=== PATIENT | male | born 1955 | race Caucasian/White ===

== ENCOUNTER 2017-01-02 16:47 | Inpatient (IN) | payer MEDICAID ==
[~2017-01-02] VITALS: Ht 162.6 cm; Wt 63.9 kg
--- NOTE | ~2017-01-02 | CON ---
PATIENT'S NAME: YLOY BOYER [facility] AGE: 61 Y [address] ROOM: [address] [place] [address] LOCATION: [facility] ADMIT DATE: 01/02/2017 Consultation DISCHARGE DATE: 01/09/2017 FAMILY PHYSICIAN: Gray Whaley MD ATTENDING PHYSICIAN: Gray Whaley DATE OF CONSULTATION: 01/05/2017 REFERRING PHYSICIAN: Sekou Padgett MD INDICATION: Persistent hypoxia with COPD exacerbation. HISTORY OF PRESENT ILLNESS: This is a 61-year-old male with a history of hypertension, PAF, heavy longtime smoker, admitted for COPD exacerbation, and respiratory failure. He reports baseline shortness of breath with stairs and baseline cough mainly in the mornings with white sputum. Three weeks ago without any precipitating factors, he developed worsening shortness of breath, lower extremity edema, and increased cough with white and brown sputum. He progressively worsened with the last week developing wheezing. He denies any hemoptysis, chest pain, lightheadedness, PND, orthopnea. He denies any history of COPD, asthma, or other lung disease. He has used tobacco products since age of 14. He started at one pack per day and then increased to 2 to 3 packs per day. He has never used inhalers. He has no history of PFTs. He was started on Levaquin, DuoNeb, and prednisone 80 mg IV every 8 hours but has not had much improvement in his oxygen needs. He came in on 4 L nasal cannula, and he is now on high- flow with FiO2 of 48%. Sats are 90%. Overall clinically, he feels less short of breath and his cough is much less. He reports only having to cough 2 times since admission. He denies any wheezing or hemoptysis. He has no fever, chills, nausea, or vomiting. PAST MEDICAL HISTORY: Includes PAF, hypothyroidism, diabetes. ALLERGIES: SEE MAR. MEDICATIONS: See MAR. FAMILY HISTORY: The patient denies any history of lung disease. SOCIAL HISTORY: He started smoking one pack per day at the age of 14 and increased to 2 to 3 PATIENT'S NAME: YOLY BOYER [facility] AGE: 61 Y [address] ROOM: [address] [place] [id number] LOCATION: GPCU ADMIT DATE: 01/02/2017 Consultation DISCHARGE DATE: 01/09/2017 FAMILY PHYSICIAN: Gray Whaley MD ATTENDING PHYSICIAN: Gray Whaley packs per day since then. He also drinks weekly. REVIEW OF SYSTEMS: All review of systems were reviewed and are negative except for what is noted in the HPI. PHYSICAL EXAMINATION: VITAL SIGNS: Blood pressure 133/66, pulse 87, respirations 17, temp 98.1. He is on high-flow with FiO2 of 48% with sats 90%. GENERAL: This is a 61-year-old male, who is alert and oriented x3 and appears in no acute distress at the time of exam. HEENT: Head: Normocephalic and atraumatic. Eyes, clear. NECK: Supple. No adenopathy. No carotid bruits. No JVD. LUNGS: With rhonchi and crackles at the bases. HEART: Regular rate and rhythm without murmur, gallop, or rub. ABDOMEN: Soft, nontender, and nondistended. Bowel sounds x4. EXTREMITIES: No cyanosis, clubbing, or edema. LABORATORY DATA: Includes sodium 137, potassium 4, BUN 20, creatinine 0.8. WBC 15.8, hemoglobin 15.8, hematocrit 47.9, platelets 219. ASSESSMENT AND PLAN: 1. Acute hypoxic respiratory failure, question secondary to pneumonia along with chronic obstructive pulmonary disease exacerbation with possible cardiac component, question patent foramen ovale versus rhythm issues with congestive heart failure component. Echo with bubble study is pending. Possible YESSICA with DCCV with antiarrhythmic today. No recent ABG and still on high-flow currently. 2. Chronic obstructive pulmonary disease exacerbation, on IV Levaquin, Zosyn, DuoNeb every 4, and Solu-Medrol. 3. Possible pneumonia, right lower lobe. Continue with IV antibiotics. 4. Bilateral pleural effusions, small on CT. Check bedside ultrasound. Secondary to possible pneumonia, right lower lobe. 5. Atrial fibrillation with RVR, per Cardiology. 6. Metabolic alkalosis probably secondary to diuretic. 7. Ongoing tobaccoism. We will need outpatient PFTs and repeat CT down the line. 8. We will check PFTs. We will check ABG due to level of hypoxia and shortness of breath. We will also obtain labs done at [facility] as well as a sputum culture. Otherwise, continue with Levaquin and Zosyn for now as well as the bronchodilators. We would recommend tapering the steroid dose to 40 mg every 8 hours. Overall, he does not appear to be volume overloaded. Therefore, we would recommend holding off on diuresis for now. PATIENT'S NAME: YOLY BOYER [facility] AGE: 61 Y [address] ROOM: [place] [address] LOCATION: GPCU ADMIT DATE: 01/02/2017 Consultation DISCHARGE DATE: 01/09/2017 FAMILY PHYSICIAN: Gray Whaley MD ATTENDING PHYSICIAN: Gray Whaley. Further recommendations will be made pending the course of his stay. Thank you for the consult and opportunity to participate in the patient's care. SMITHA COSTA APRN FOR MD JAMSHID STRANGE/mc /[id number] d: 01/29/172116 t: 02/02/17 1035, CONSULTATION REPORT
--- NOTE | ~2017-01-02 | DS ---
PATIENT'S NAME: YOLY BOYER [facility] AGE: 61 Y [address] ROOM: [id number] [place], [place] [address] LOCATION: GPCU ADMIT DATE: 01/02/2017 Discharge Summary DISCHARGE DATE: 01/09/2017 FAMILY PHYSICIAN: Gray Whaley MD ATTENDING PHYSICIAN: Gray Whaley FINAL DIAGNOSES: 1. Acute on chronic hypoxic and hypercapnic respiratory failure. 2. Acute exacerbation of chronic obstructive pulmonary disease. 3. Bilateral pneumonia. 4. Atrial fibrillation with a rapid ventricular rate, which is new onset. 5. Hypertension. 6. Prediabetes. 7. Nicotine dependence. 8. Hyperthyroidism. 9. Hyperlipidemia. REASON FOR ADMIT: A 61-year-old white male, who is a smoker and poorly compliant with his self-care came into the clinic for a medication check. He was having complaints of wheezing and cough that began 3 weeks ago and has progressively gotten worse. He has had increased swelling in his lower extremities as well. He was found to be significantly hypoxic with a sat of 79% on room air. He was made a direct admit at that time. Please see dictated H and P for full details. HOSPITAL COURSE: The patient was admitted. Chest x-ray show bilateral pneumonia with small effusions. He primarily had a pulmonary component though with his COPD and acute hypoxic respiratory failure. He was initially on 6 L per nasal cannula and took a long time to even get off that. He was treated with IV Levaquin for a community-acquired pneumonia. He ended up having not much for improvement over the next 4-5 days even with IV steroids and breathing treatments. Pulmonary was consulted and they did do some BiPAP and that really seemed to kind of opened him up a little bit, and he eventually started having decreased O2 demands. He was then on 2 L at the time of discharge. The patient also had some atrial fibrillation with RVR. It sounds like that is new in onset for him. They did an echo which showed an ejection fraction of 55-60%. He had some [id number] dilatation of the right atrium and mild dilatation of the left atrium. The interatrial septum appeared to be aneurysmal. There was a bubble study done with the valves and across the left atrium to suggest a PFO or an ASD. He was initially placed on IV Cardizem. He ended up converting, but then had several episodes where he was then back in the AFib with RVR. He was placed on Xarelto by Cardiology as well. He was very well rate controlled and in sinus rhythm at the time of discharge. PATIENT'S NAME: YOLY BOYER [facility] AGE: 61 Y [address] ROOM: [place] [address] LOCATION: GPCU ADMIT DATE: 01/02/2017 Discharge Summary DISCHARGE DATE: 01/09/2017 FAMILY PHYSICIAN: Gray Whaley MD ATTENDING PHYSICIAN: Gray Whaley We also had a considerable difficulty getting his blood pressure under control. He had been on just an KOFI inhibitor in the past and that was held up as well as adding other medications as per discharge summary. Again, at the time of discharge, his blood pressure is looking much better. DISCHARGE INSTRUCTIONS: He will follow up with Dr. Hendrickson in 2 weeks, myself in 1 week. His medication list will be the followin. Atorvastatin 40 mg at bedtime. 2. Amlodipine 5 mg twice a day. 3. Docusate 100 mg b.i.d. 4. Benazepril 20 mg b.i.d. 5. NicoDerm patch 7 mg transcutaneously once a day. 6. Propylthiouracil 150 mg 3 times a day. 7. Xarelto 20 mg once a day. 8. Metoprolol succinate 100 mg once a day. 9. Prednisone 20 mg b.i.d. for 5 days and 1 p.o. daily for 5 days, and half p.o. daily for 6 days. 10. Combivent 2 puffs every 4 to 6 hours p.r.n. 11. Symbicort 160/4.5 two puffs b.i.d. 12. Augmentin 875 1 p.o. b.i.d. for 7 days. He will be done with his Levaquin as he is taking that now for 8 days after today. He will be placed on home oxygen to keep sats greater than 90%. He is qualified for that at this point. The patient states he has been done to qualify him for this oxygen need. He was actually advised not to smoke at all for his health, but also not smoke the oxygen as that is clinically very dangerous. He voiced understanding of that plan. GRAY WHALEY MD TAB/modl /[id number] d: 01/09/17 075 t: 02/02/17825, DISCHARGE SUMMARY
--- NOTE | ~2017-01-02 | ECHO ---
Transthoracic Echocardiography Report (TTE) Demographics Patient Name YOLY BOYER Date of Study 01/05/2017 Patient Number [id number] Visit Number [id number] Date of 1955 Room Number G6337 Accession Number [id number] Gender Male Age 61 year(s) Referring Pool Table Mechanic Brianna Lennox RDCS, Physician RVT Physician Interpreting Lorin Sapp Radar Scientist Physician Supervising Ordering Physician Jovana SOW MD/JEFF Corbin MD Nurse Stress In Room Dining Server Conclusions Summary The estimated left ventricular ejection fraction is 55-60%. Unable to comment on regional wall motion abnormalities as patient had atrial fibrillation with rapid ventricular rate during the study. The right atrium is mild to moderately dilated. The left atrium is mildly dilated. The interatrial septum appears aneurysmal. Bubble study was done, bubbles did not cross to left atrium to suggest PFO or ASD. Procedure Type of Study TTE procedure:2D Echocardiogram. Procedure Date Date: 01/05/2017 Start: 07:59 AM Study Location: Inpatient Portable Technical Quality: Adequate visualization Indications:Atrial fibrillation. Appropriate Use Criteria: 9 Patient Status: Routine Rhythm: Atrial fibrillation HR: 118 bpm BP: 147/78 mmHg M-Mode/2D Measurements LV Diastolic Dimension: 4.3 cm LV Systolic Dimension: 3.2 cm LV Septum Diastolic: 0.77 cm LV Septum Systolic: 2.68 cm LV PW Diastolic: 0.84 cm AO Root Dimension: 2.5 cm Cardiac Output: 7.23 l/min AV Cusp Separation: 1.7 cm RV Diastolic Dimension: 2.68 cm LA volume: 83 ml IVC Inspiration: 0.5 cm LVOT: 2 cm RV Base: 3.51 cm LVOT VTI: 19.5 cm RV Mid: 1.93 cm LV Stroke volume: 61.23 ml TAPSE: 2.75 cm TDI-S': 17 cm/s Doppler Measurements AV Peak Velocity: 1.6 m/s MV Peak E-Wave: 1.07 m/s AV Peak Gradient: 10.24 mmHg MV Peak A-Wave: 0.64 m/s AV Mean Gradient: 5 mmHg MV E/A Ratio: 1.68 LVOT Peak Velocity: 0.99 m/s MV P1/2t: 46 msec TR Gradient:30.03 mmHg PV Peak Velocity: 1.08 m/s Estimated RAP:3 mmHg PV Peak Gradient: 4.67 mmHg Estimated RVSP: 33 mmHg Estimated PASP: 33.03 mmHg E' Septal Velocity: 0.14 m/s A' Septal Velocity: 0.08 m/s E' Lateral Velocity: 0.18 m/s A' Lateral Velocity: 0.07 m/s MV E/E' Ratio: 7.3 Findings Left Ventricle The estimated left ventricular ejection fraction is 60-65%. Right Ventricle Normal right ventricle structure and function. Left Atrium The left atrium is mildly dilated by LA volume index measurement. The interatrial septum appears aneurysmal. Bubble study was done, bubbles did not cross to left atrium to suggest PFO or ASD. Right Atrium The right atrium is mild to moderately dilated. Mitral Valve Mild mitral annular calcification. Aortic Valve The aortic valve is mildly sclerotic. Tricuspid Valve Mild tricuspid regurgitation by color Doppler. Pulmonic Valve Trivial pulmonic valve regurgitation by color Doppler. Pericardial Effusion No evidence of pericardial effusion. Miscellaneous Visualized portions of the aortic root and ascending aorta appear normal in size. Pleural Effusion No evidence of pleural effusion. Signature dtt: TASHA RODRIGUEZ dtd: 01/05/17 0759 Physician Self Edit
--- NOTE | ~2017-01-02 | CON ---
PATIENT'S NAME: YOLY FLORES [facility] AGE: 61 Y [address] ROOM: [place] [address] LOCATION: GPCU ADMIT DATE: 01/02/2017 Consultation DISCHARGE DATE: FAMILY PHYSICIAN: Gray Whaley MD ATTENDING PHYSICIAN: Gray Whaley REFERRING PHYSICIAN: TASHA RODRIGUEZ MD REFERRING PHYSICIAN: Dr. Whaley REASON FOR CONSULT: Atrial fibrillation with rapid ventricular rate. HISTORY OF PRESENT ILLNESS: Mr. Flores is a pleasant 61-year-old male who was admitted with acute exacerbation of COPD and hypoxia. The patient has a history of paroxysmal atrial fibrillation. Today, in the morning, he was found to be in atrial fibrillation with rapid ventricular rate, and hence, Cardiology was consulted. The patient denied any palpitations. He denied any chest pain. He has chronic shortness of breath. He denied any syncopal episode. He was given Cardizem bolus followed by Cardizem drip. Presently, his heart rate is 120 to 130 beats per minute. REVIEW OF SYSTEMS: The patient denied any recent change in vision. No history of nausea or vomiting. History of cough with brownish expectoration is present. No history of fever. History of shortness of breath is present. No history of chest pain. No history of diarrhea or constipation. No history of leg pains or leg cramps. Review of other systems was essentially negative. PAST MEDICAL HISTORY: Diabetes mellitus, paroxysmal atrial fibrillation, hyperthyroidism, and COPD. PERSONAL HISTORY: He smokes about one pack of cigarettes a day. He also stated that he drinks 3 to 4 quarts of beer in a week. SOCIAL HISTORY: The patient is . FAMILY HISTORY: The patient stated that both his parents of old age and denied any history of premature coronary artery disease in the family. CURRENT MEDICATIONS: 1. Cardizem drip. PATIENT'S NAME: YOLY FLORES [facility] AGE: 61 Y [address] ROOM: [place] [address] LOCATION: GPCU ADMIT DATE: 01/02/2017 Consultation DISCHARGE DATE: FAMILY PHYSICIAN: Gray Whaley MD ATTENDING PHYSICIAN: Gray Whaley 2. Enoxaparin 40 mg subcu. 3. Atorvastatin 40 mg daily. 4. Levofloxacin. 5. Ipratropium. 6. Methylprednisone. 7. Lisinopril 20 mg daily. 8. Furosemide 40 mg daily. PHYSICAL EXAMINATION: GENERAL: He is awake, alert, oriented, and is using accessary muscles of respiration. VITAL SIGNS: His pulse rate is 130 beats per minute, blood pressure is 133/62 mmHg, respiratory rate 24, and temperature 97.8. HEENT: His head is atraumatic and normocephalic. Oral mucosa is moist. NECK: No significant jugular venous distention is present. CARDIOVASCULAR: S1 and S2 are audible. They are irregular in rate and rhythm. The patient is tachycardic. RESPIRATORY: Bilateral vesicular breath sounds are audible with prolonged expiration. Breath sounds are diminished in right infrascapular area. Few crackles are audible on both sides. ABDOMEN: Soft and nontender. Bowel sounds are present. EXTREMITIES: No significant pedal edema. No clubbing is present. SKIN: Warm and dry. NEUROLOGIC: The patient is awake, alert, and oriented. LABORATORY DATA: Sodium 136, potassium 4.6, chloride 100, CO2 of 32, glucose 153, calcium 8.7, BUN 14, and creatinine 0.6. AST is 25 and ALT is 37. White blood cell count 3.7, hemoglobin 15.4, hematocrit 49, and platelet count 216. CT scan of the chest reported small bilateral pleural effusion with bibasilar consolidation, worse on the right side. ASSESSMENT AND PLAN: 1. Atrial fibrillation with rapid ventricular rate. We will continue Cardizem drip for ventricular rate control and titrate dose as needed for rate control. We will avoid beta blockers in view of the patient's history of severe chronic obstructive pulmonary disease. If rate control is inadequate, we will consider addition of other medications for rate control. We will also start the patient on full anticoagulation with Lovenox and consider long-term oral anticoagulation if no surgical procedures are planned for the patient. Atrial fibrillation could be precipitated by his underlying lung disease. We will also obtain 2D echocardiogram to evaluate left ventricular function after ventricular rate is controlled. 2. Chronic obstructive pulmonary disease, acute exacerbation. Management per PATIENT'S NAME: YOLY FLORES [facility] AGE: 61 Y [address] ROOM: [place] [address] [facility] ADMIT DATE: 01/02/2017 Consultation DISCHARGE DATE: FAMILY PHYSICIAN: Gray Whaley MD ATTENDING PHYSICIAN: Gray Whaley primary care team. 3. Pneumonia with possible parapneumonic effusion. Management per primary team. 4. Tobacco dependence. The patient was advised to discontinue smoking. The plan of care was discussed with the patient and Nursing. We will follow the patient along with you. Thank you, Dr. Whaley, for allowing us in taking part in the care of this pleasant patient. MD VIOLET BARBOSA/modl /[id number] d: 01/04/17 1155 t: 01/15/17 1037, CONSULTATION REPORT
--- NOTE | 2017-01-02 17:29 | NUR ---
PT is 61 y/o male admit for COPD exacerbation and pneumonia for . No med allergies. Came from clinic today. Hx htn,hypercholest,L)ankle arthritis, nocturia,frequent SMILEY's. Resides at home by himself. Teeth in poor condition. Works at the [employer] in [place]. States he wasn't really feeling poorly but rather went to the [facility] today for a regular check up. BP elevated on admission at 200's over 90's. Pt denies fevers or chills. Does have a congested hacky cough but denies coughing anything up very often.
[2017-01-02] MEDS ORDERED: BENAZEPRIL HCL20 MG PO (17:56)
[2017-01-02] MEDS ORDERED: LIPITOR80 MG PO (17:57)
--- NOTE | 2017-01-03 05:12 | NUR ---
Significant Event: NO C/O PAIN ALL NIGHT. SLEEPING WELL. SBP DOWN TO 142 AT 0215. REMAINS ON 4L PER NC. NO C/O SOB. Follow up:
[2017-01-03 05:21] LABS: HEMOGLOBIN 15.4 g/dL (11.0-16.0); MCH 31.4 pg (27.0-34.0); MCHC 31.4 gm/dL (32.0-36.5); MPV 10.2 fl (9.4-12.4); PLATELET COUNT 216 K/uL (150-450); RDW-CV 12.8 % (11.9-14.6); WBC 3.7 K/uL (4.0-11.0)
[2017-01-03 05:45] LABS: ALBUMIN 3.1 gm/dL (3.5-5.0); ALK PHOS 88 IU/L (33-138); ALT 37 IU/L (12-78); ANION GAP 8.6 (10.0-19.0); AST 25 IU/L (10-40); BLOOD UREA NITROGEN 14 mg/dL (6-24); CALCIUM 8.7 mg/dL (8.5-10.5); CHLORIDE 100 mMol/L (96-110); CO2 32 mMol/L (22-32); CREATININE 0.6 mg/dL (0.6-1.3); POTASSIUM 4.6 mMol/L (3.7-5.1); SODIUM 136 mMol/L (135-145); TOTAL BILIRUBIN 0.5 mg/dL (0.0-1.5); TOTAL PROTEIN 6.9 g/dL (6.0-8.4)
[2017-01-03 05:56] LABS: ABSOLUTE NEUTROPHIL CT (ANC) 3.3 K/uL (1.4-9.0); BANDED NEUTROPHIL # 0.1 K/uL (0.0-0.1); BANDED NEUTROPHILS % 3 %; LYMPHOCYTE # 0.4 K/uL (0.8-4.0); LYMPHOCYTE % 11 %; SEGMENTED NEUTROPHIL # 3.2 K/uL (1.4-9.0); SEGMENTED NEUTROPHIL % 85 %
--- NOTE | 2017-01-03 16:20 | NUR ---
Significant Event: A/Ox3. [id number]. P-70-80s. Afebrile. Currently 4L with saturations in the low 90s. Had fluctuated between 2-4L today. Harsh productive cough with thick sputum. Lung sounds coarse to wheezy at times. Up with SBA-1A. 500ml of urine out per urinal. IV levaquin and IVP solumedrol continued. Pleasant and cooperative with cares.
--- NOTE | 2017-01-04 04:12 | NUR ---
A&Ox3. O2 sits at 89-90 titrated up from 4 to 6L. Afebrile. Wheezing noted throughout. Harsh cough and can't cough up sputum. Lasix 20mg IV given x1 for low 02 sats and increased O2 needs. Has 2,175 out per urinal clear, yellow urine. Resting quietly in bed. Denies any pain.
[2017-01-04 14:00] LABS: HEMATOCRIT 47.9 % (37.0-53.0); HEMOGLOBIN 15.8 g/dL (11.0-16.0); MCH 33.2 pg (27.0-34.0); MCV 100.6 fl (83.0-98.0); PLATELET COUNT 219 K/uL (150-450); RBC 4.76 M/uL (3.50-5.50); RDW-CV 12.8 % (11.9-14.6); WBC 15.8 K/uL (4.0-11.0)
[2017-01-04 14:23] LABS: ALK PHOS 80 IU/L (33-138); ALT 29 IU/L (12-78); AST 16 IU/L (10-40); BLOOD UREA NITROGEN 20 mg/dL (6-24); CALCIUM 8.7 mg/dL (8.5-10.5); CHLORIDE 96 mMol/L (96-110); CREATININE 0.8 mg/dL (0.6-1.3); SODIUM 137 mMol/L (135-145); TOTAL PROTEIN 6.6 g/dL (6.0-8.4)
[2017-01-04 14:24] LABS: CO2 36 mMol/L (22-32); TOTAL BILIRUBIN 0.3 mg/dL (0.0-1.5)
[2017-01-04 14:48] LABS: ABSOLUTE NEUTROPHIL CT (ANC) 15.5 K/uL (1.4-9.0); BANDED NEUTROPHIL # 0.6 K/uL (0.0-0.1); BANDED NEUTROPHILS % 4 %; LYMPHOCYTE # 0.2 K/uL (0.8-4.0); LYMPHOCYTE % 1 %; MONOCYTE # 0.2 K/uL (0.0-1.0); SEGMENTED NEUTROPHIL # 14.9 K/uL (1.4-9.0); SEGMENTED NEUTROPHIL % 94 %
--- NOTE | 2017-01-04 15:34 | NUR ---
Significant Event: A/Ox3. [id number]. P-80-170s. Afib. Afebrile. 6L NC with saturations in the low 90s. non productive harsh cough. L) Fa IV infusing cardizem 10mg/hr. Patient recived a 15mg bolus of cardizem and 0.25mg IVP of digoxin. At 1900 we are to give another dose of dixogin if pulse is >90 and sustained. Cardiology consulted. Echo to be done in AM. Lasix 40mg IVP given. 2275ml of urine out per urinal. CT results indicated patient did not have a mass present in the LLL. PT/OT to eval and treat starting tomorrow.
--- NOTE | 2017-01-05 03:49 | NUR ---
A&Ox3 this shift. SBP 120/150s. A-fib throughout shift. Rates in 80-110s. Afebrile. On high flow 02 Fi02 50%. Lungs clear/dim with fine crackles noted. On 5mg/hr gtt Cardizem. Echo in AM. PT/OT to work with patient. Denies SOB or any pain. Up with stand by assist to void in urinal. L) post forearm IV infusing. Intermittent antibiotics and steroids to treat pneumonia. Follow up: To con't with POC.
[2017-01-05 11:58] LABS: BICARBONATE 41.2 mmol/L (18.0-23.0); PCO2 68 mmHg (35-45); PO2 72 mmHg (80-90)
--- NOTE | 2017-01-05 16:41 | NUR ---
Significant Event: A/O x3, cooperative with cares. VSS, SBPs 120-160s, HRs 70-90s, oxygen on 6 liters/NC; bipap on 2 hours/off 2 hours et continuous at night. No c/o pain. Pulmonary consult; Dr. Roth seen patient. Echo today, EF 55-60%. Converted to sinus rhythm at 1208; Dr. Padgett notified et cardizem shut off. Up with assist of 1 et gait belt to chair; PT/OT working with patient. Follow up: sputum needed for culture
--- NOTE | 2017-01-06 03:53 | NUR ---
A&Ox3 this shift. Calm/cooperative with cares. New pulmonary order to wear Bi-PAP on 2 hours off 2 hours and at NOC. N/C at 6L to keep sats 88-90%. VSS. Up with stand by assist to void per urinal. No BMs. Intermittent antibiotics and steriods. IV to L) posterior forearm infusing and R) hand SL. No pain noted. Remains SR. Sputum needed for culture. To con't with POC.
--- NOTE | 2017-01-06 11:45 | NUR ---
Received consult from [employer]key engine firer to look into financial assistance for sukhjinder. Talked with patient, introduced self and care management services to him, lives alone in [place], plans on going home on discharge. Has friends who can help him if needs anything when goes home. Talked with patient about his insurance, has Medicaid, denies having a share of cost. Uses [facility], I called the pharmacist there and she looked at his insurance information and said the Sukhjinder is covered at 100% by his Medicaid. Left note for dinkey engine firer with that information. Pt denies further needs.
[2017-01-06 12:59] LABS: MAGNESIUM 2.2 mg/dL (1.8-2.6); POTASSIUM 3.6 mMol/L (3.7-5.1)
--- NOTE | 2017-01-06 14:16 | NUR ---
PT SCREENED D/T LOS. EST NEEDS: [id number] KCALS, 70-84 GM PROTEIN, 1 ML/KCAL FLUIDS. INTAKE ADEQUATE AND BMI WNL. NO NUTRITION-RELATED DIAGNOSIS IDENTIFIED. WILL F/U IN 7-10 DAYS.
--- NOTE | 2017-01-06 17:04 | NUR ---
Significant Event: VSS AND CONTINUES ON 4L/NC ALL SHIFT. HYPERTENSIVE TODAY WITH SBPS 160S-191; MEDS ADDED. WENT INTO INTERMITTENT AFIB WITH HR'S 120S-150S AROUND [address] LUDWIG NOTIFIED; ONLY TO NOTIFY IF SUSTAINS. WENT INTO SUSTAINED AFIB ABOUT AN HOUR LATER WITH HR'S 140S-170S; IV DIGOXIN 0.5 MG AND PO LOPRESSOR WAS ADDED BY DR. LUDWIG; REMAINS IN AFIB BUT HR'S ARE NOW 90S-100S. DENIES PAIN. UP TO CHAIR AND AMBULATED IN THE CASH THIS AM WITH PT PRIOR TO INCREASED HR'S. IV LASIX GIVEN WITH GOOD DIURESIS. IV SOLUMEDROL DOSE DECREASED. IV ABX CONTINUE. REPOSITIONS SELF FREQUENTLY. Follow up: CONTINUE PLAN OF CARE; 1 MORE DOSE OF IV DIGOXIN THIS EVENING AND CONTINUE WITH HR CONTROL.
--- NOTE | 2017-01-07 04:56 | NUR ---
A/O. HR 90-100s IN AFIB BEGINNING OF SHIFT. CONVERTED TO NSR WITH PVC AT 2340. HR NOW 50-70s. SBP 140-150s. 4L NC. REFUSED BIPAP. VOIDS PER URINAL. DENIES PAIN. NO BM.
[2017-01-07 07:02] LABS: ANION GAP 7.8 (10.0-19.0); BLOOD UREA NITROGEN 20 mg/dL (6-24); CALCIUM 8.9 mg/dL (8.5-10.5); CHLORIDE 93 mMol/L (96-110); CO2 39 mMol/L (22-32); CREATININE 0.8 mg/dL (0.6-1.3); MAGNESIUM 2.6 mg/dL (1.8-2.6); POTASSIUM 4.8 mMol/L (3.7-5.1); SODIUM 135 mMol/L (135-145)
--- NOTE | 2017-01-07 18:54 | NUR ---
Significant Event: A/O X3. DANGLES AT BEDSIDE TO VOID IN URINAL. GOOD UOP. IV TO RIGHT HAND WITH NS TKO AND INTERMITTENT ANTIBIOTICS. O2 @ 3L NC, SATS 89-92%. DENIES PAIN. COOPERATIVE WITH CARES. Follow up:
--- NOTE | 2017-01-08 04:45 | NUR ---
A&Ox3. VSS on 3L. R hand IV. SBA. No complaints of pain. HR's 50-70s. 0500 lopressor held for HR. No BMs. Voids per urinal with adequate UOP.
--- NOTE | 2017-01-08 19:29 | NUR ---
Significant Event: A/O X3. FLAT AFFECT. UP WITH SBA TO BR. O2 @ 2L NC. DENIES PAIN. VOIDS PER URINAL. DULCOLAX PO X1 AND SCHEDULED COLACE INTITIATED D/T NO BM SINCE 01/02, BM X1 THIS SHIFT. IV TO RIGHT HAND SL'D. Follow up:
--- NOTE | 2017-01-09 03:29 | NUR ---
A&Ox3. VSS on 2L. Breathing tx periodically throughout NOC. R) hand IV site SL. Intermittent antibiotics infusing. Voids per urinal at bedside. 1,795 clear, yellow urine output. Denies pain. Con't with POC.
[2017-01-09] MEDS ORDERED: NORVASC5 MG PO (09:46)
[2017-01-09] MEDS ORDERED: COLACE100 MG PO (09:47)
[2017-01-09] MEDS ORDERED: ASPIRIN EC81 MG (09:53)
[2017-01-09] MEDS ORDERED: NICODERM / HABIT7 MG TOP (09:53)
[2017-01-09] MEDS ORDERED: XARELTO20 MG PO (09:56)
[2017-01-09] MEDS ORDERED: PROPYLTHIOURACI50 MG PO (09:56)
[2017-01-09] MEDS ORDERED: TOPROL XL100 MG PO (09:58)
[2017-01-09] MEDS ORDERED: DELTASONE20 MG PO ×3 (10:01→10:03)
[2017-01-09] MEDS ORDERED: COMBIVENT RESPIM4 GM INH (10:07)
[2017-01-09] MEDS ORDERED: SYMBICORT 16010.2 GM INH (10:08)
[2017-01-09] MEDS ORDERED: AUGMENTIN 875-1 EACH PO (10:10)
--- NOTE | 2017-01-09 16:28 | NUR ---
Significant Event:vss.2l per nc. oxygen set up to go home.waiting on ride. discharged. Follow up:will continue to monitor per plan of care.
--- NOTE | 2017-01-09 18:43 | NUR ---
Talked with pt nurse Karin RN several times on the phone after friend/caregiver? Nithin Conrad [phone] came after 5pm to pick out hand pt. Nithin has several questions about how medications will be paid for (pt has medicaid), if pt has medicaid card (he should have one, if not on him then at home), can't get meds at [facility] after 5pm (pt dismissed this morning and Nithin didn't come get him until now so will have to get medications at [facility] or [facility]), and on numerous new medications so wants HH to come set them up for him. [facility] not taking new admissions until next week. Called Munir care transition nurse with [facility], and she checked and called back and said they said could admit on Thursday to set up admit through the main line [phone] so I called that number and it says disconnected and called Munir back and had to leave a voicemail with that info. Then tried calling [phone] number for [facility] and that gets [facility] in [place] who could not get through to [facility]. Then tried calling Makayla care transition nurse with [facility] [phone] and got through, she said [facility] cannot admit until Thursday next week and that the message that the number disconnected isn't correct, just won't work from [facility]. She said they are aware of that problem and it should be getting fixed. Called Karin back to let her know HH won't admit until Thursday next week and she asked pt friend Nithin if he can help pt with medications until they get out to do teaching and med setup and that she explained to them can buy and set up pillbox for him or since he gets medications through [facility], can get them to set up pillbox for him for a cost every month. Nithin says they can help him until HH can admit and wants HH to see pt for medication teaching and med setup as he has numerous new medications. I faxed [facility] referral information to [phone] and Karin is going to fax HH order and dismissal orders and medications. Friend Nithin is going to take pt to get medications filled tonight. Will check on Thursday to make sure [facility] got the orders they need to admit next week.
--- NOTE | 2017-01-09 18:52 | NUR ---
ORDERS RECEIVED TO DISCHARGE PATIENT HOME. CAREGIVER SHOWED UP TO TAKE PATIENT HOME AT 1700. WHEN RN STARTED EXPLAINNING DISCHARGE ORDERS TO PT'S CAREGIVER, STATED"HE COULDN'T MANAGE ALL THE PT'S NEW MEDS, AND REQUESTED PENITENTIARY, OR HOME HEALTH CARE". STATED PATIENT UNABLE TO READ, AND MENTALLY HANDICAPED". DR. CARRENO NOTIFIED, "STATED PATIENT TO BE DISCHARGE, AND OK TO HAVE HOME HEALTH SET UP". CARE MANAGEMENT LAURY CALLED. TRIED TO SET UP HOME HEALTH FOR PATIENT, BUT UNABLE TO UNTIL NEXT WEEK. NURSE EXPLAINNED TO PATIENT'S CAREGIVER HOW TO GET A PILL BOX, AND SEPARATE THE PILLS. WENT OVER MEDICATION LIST SEVERAL TIMES. 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 PATIENT'S CAREGIVER AGREED TO TAKE PATIENT HOME. "STATED WILL TRY HIS BEST TO HELP PATIENT WITH HIS MED, AND STILL WOULD LIKE HOME HEALTH TO COME TO SEE PATIENT". HOME HEALTH TO BE SET UP BY MID NEXT WEEK BY JONAH SCHAEFFER. ORDERS FAXED BY RN TO HOME HEALTH AGENCY.
--- NOTE | 2017-01-12 15:52 | NUR ---
Received call from Munir transition assistant nurse with [facility] . They got the referral information and orders on Mr Flores and will admit to Home Health this week.
== END 2017-01-09 19:00 | disposition home health service (06) | DRG 190 ==
LOC: GPCU 16:47
PROVIDERS: Internal Medicine Interventional Cardiology; Nurse Practitioner; ADMIT Family Medicine
PROC: 5A09357 Assistance with Respiratory Ventilation, Less than 24 Consecutive Hours, Continuous Positive Airway Pressure (ICD-10-PCS; principal; 2017-01-05)
DX: J44.1 Chronic obstructive pulmonary disease with (acute) exacerbation (principal); J96.21 Acute and chronic respiratory failure with hypoxia; J18.9 Pneumonia, unspecified organism; E87.3 Alkalosis; J90 Pleural effusion, not elsewhere classified; I48.0 Paroxysmal atrial fibrillation; J96.22 Acute and chronic respiratory failure with hypercapnia; J44.0 Chronic obstructive pulmonary disease with (acute) lower respiratory infection; I10 Essential (primary) hypertension; E78.2 Mixed hyperlipidemia; E05.90 Thyrotoxicosis, unspecified without thyrotoxic crisis or storm; R73.03 Prediabetes; F17.210 Nicotine dependence, cigarettes, uncomplicated; M19.042 Primary osteoarthritis, left hand; M19.041 Primary osteoarthritis, right hand; M21.612 Bunion of left foot; M21.611 Bunion of right foot; Z79.899 Other long term (current) drug therapy; Z23 Encounter for immunization
CPT/HCPCS: J1160; J1650; J1940; J1956; J2543; J2920; J7040; J7050; Q9967